=== PATIENT | female | born 1985 ===

== ENCOUNTER 2017-06-26 18:56 | Inpatient (IN) | payer MEDICAID ==
--- NOTE | 2017-06-26 19:12 | OBHP ---
Datetime: 06/26/2017 19:09 IP Adm Impression: Postterm, intrauterine ; No Active Labor IP Admit Plan: Admit to unit; Initiate labor induction protocol Admit Comment, IP Provider: at 41weeks came with c/o irrg ctxs, no vb, lof,+fm. obhx 1 x pmh de med pnv all nkda psh den soch den a/p at 41weeks her for post date induction admit to l_d npo/ivf labs cont zuhair and efm pain devyn anticipate Pelvic Type - PN: Adequate Extremities - PN: Normal Abdomen - PN: Normal Back - PN: Normal Breast - PN: Normal Lungs - PN: Normal Heart - PN: Normal Thyroid - PN: Normal Neurologic - PN: Normal HEENT - PN: Normal General - PN: Normal FHR - Baseline A Provider: 130 Contraction Comments Provider: occ IP Hx Assessment: The History has been Reviewed and is Current Vital Signs Provider: Reviewed; Within Normal Limits IP Chief Complaint: Uterine contractions NICHD Variability Prov Fetus A: Moderate 6-25bpm NICHD Accel Fetus A IP Provider: 15X15 FHR Category Provider Fetus A: Category I Genitourinary Exam: Normal DTRs - PN: Normal
[2017-06-26 19:15] VITALS: BMI 30.4
[2017-06-26] MEDS ORDERED: Nalbuphine 20 mg/ml Inj (1 ml) IVP PRN (19:15)
[2017-06-26] MEDS ORDERED: Lactated Ringer's 1,000 ML IV SCH (19:15)
--- NOTE | 2017-06-26 19:15 | OBADHP ---
Datetime: 06/26/2017 19:09 Admit Comment, IP Provider: at 41weeks came with c/o irrg ctxs, no vb, lof,+fm. obhx 1 x pmh de med pnv all nkda psh den soch den a/p at 41weeks her for post date induction admit to l_d npo/ivf labs cont zuhair and efm pain devyn anticipate Pelvic Type - PN: Adequate Extremities - PN: Normal Abdomen - PN: Normal Back - PN: Normal Breast - PN: Normal Lungs - PN: Normal Heart - PN: Normal Thyroid - PN: Normal Neurologic - PN: Normal HEENT - PN: Normal General - PN: Normal FHR - Baseline A Provider: 130 Contraction Comments Provider: occ Comments, ACOG Physical Exam: gravid,non tender ext no edema,no calf IP Hx Assessment: The History has been Reviewed and is Current Vital Signs Provider: Reviewed; Within Normal Limits IP Chief Complaint: Uterine contractions NICHD Variability Prov Fetus A: Moderate 6-25bpm NICHD Accel Fetus A IP Provider: 15X15 FHR Category Provider Fetus A: Category I Genitourinary Exam: Normal DTRs - PN: Normal IP Adm Impression: Postterm, intrauterine ; No Active Labor IP Admit Plan: Admit to unit; Initiate labor induction protocol
--- NOTE | 2017-06-26 19:25 | OBPN ---
Datetime: 06/26/2017 19:23 IP Procedures: Sterile Vag Exam IP Progress Plan: Cervical Ripening Contraction Comments Provider: occ FHR - Baseline A Provider: 120 IP Progress Note Comment: pt was examined at bed side cervidil placed r/a/b discussed Vital Signs Provider: Reviewed; Within Normal Limits NICHD Accel Fetus A IP Provider: 15X15 FHR Category Provider Fetus A: Category I NICHD Variability Prov Fetus A: Moderate 6-25bpm Dilatation, Provider: 0 Effacement, Provider: 30 Station, Provider: -3 Datetime: 06/26/2017 19:09 IP Informed Consent Obtain: Vaginal Delivery
[2017-06-26 19:34] LABS: BASO % 0.3 % (0.0-2.0); EOS % 0.1 % (0.0-4.0); HEMATOCRIT 36.5 % (34.0-47.0); MEAN CELL VOLUME 93.6 fL (81.0-99.0); MEAN CORPUSCULAR HEMOGLOBIN 31.9 pg (27.0-31.0); MEAN PLATELET VOLUME 8.3 fL (7.2-11.7); MONO # 0.3 K/uL (0.0-0.8); MONO % 5.1 % (0.0-10.0); NRBC % 0.1 % (0.0-2.0); RED CELL DISTRIBUTION WIDTH 13.2 % (11.5-14.5); WHITE BLOOD COUNT 6.7 K/uL (4.8-10.8)
[2017-06-26 19:42] LABS: CHLORIDE 100 mmol/L (98-107)
[2017-06-26 19:43] LABS: POTASSIUM 3.9 mmol/L (3.6-5.2); SODIUM 136 mmol/L (132-148)
[2017-06-26 19:45] LABS: ALB/GLOB RATIO 1.1 (1.0-2.1); AST/SGOT 31 U/L (14-36); BILIRUBIN,TOTAL 0.5 mg/dL (0.2-1.3); CARBON DIOXIDE 21 mmol/L (22-30); GFR AFRICAN-AMERICAN > 60; TOTAL PROTEIN 6.7 g/dL (6.3-8.3)
[2017-06-26 19:46] LABS: ALKALINE PHOSPHATASE 94 U/L (38-126); ALT/SGPT 34 U/L (9-52); BLOOD UREA NITROGEN 8 mg/dL (7-17); CALCIUM 8.8 mg/dl (8.6-10.4); GLUCOSE,RANDOM 83 mg/dL (65-105)
[2017-06-26 19:58] LABS: RBC URINE 4 /hpf (0-3); TRANSITIONAL EPITHIAL < 1 /hpf (0-3); URINE BACTERIA OCC (<OCC); URINE BILIRUBIN NEGATIVE (NEGATIVE); URINE BLOOD NEGATIVE (NEGATIVE); URINE COLOR Yellow (YELLOW); URINE GLUCOSE (UA) NORMAL (Normal); URINE KETONE NEGATIVE (NEGATIVE); URINE LEUKOCYTE ESTERASE 2+ Leu/uL (Negative); URINE PROTEIN NEGATIVE (NEGATIVE); URINE UROBILINOGEN NORMAL mg/dL (0.2-1.0); WBC URINE 15 /hpf (0-5)
[2017-06-27] MEDS ORDERED: Nalbuphine 20 mg/ml Inj (1 ml) ONE (01:47)
--- NOTE | 2017-06-27 06:16 | OBPN ---
Datetime: 06/27/2017 06:12 IP Progress Plan Other: cervidil removed IP Procedures: Sterile Vag Exam Contraction Comments Provider: irrg FHR - Baseline A Provider: 120 IP Progress Note Comment: pt was examined at bed side fhr 130 mod with occ variables cervidil removed anticipate Vital Signs Provider: Within Normal Limits NICHD Variability Prov Fetus A: Moderate 6-25bpm
--- NOTE | 2017-06-27 07:45 | OBPN ---
Datetime: 06/27/2017 07:38 IP Progress Impression: Normal progression of labor IP Procedures: Sterile Vag Exam IP Progress Plan: Continue present management; Augmentation; Anesthesia consult Membranes, Provider: Intact Contraction Comments Provider: 2-6 FHR - Baseline A Provider: 120 Gestation - Est Wks by US: 41.0 Presentation-Admit: Vertex IP Progress Note Comment: Patient received in right lateral position in LDR #3: present. Halima naidu is from [place], speaks Azeri; understands Lithuanian (+) pain of contractions, pain scale 7/10; receptive to epidural. (+) AFM; denies LOF V.E.: as above. Assessment: 31 yo P1, 41 weeks, IOL; S/P cervidil x 1 with good cervical response; entering active phase of labor. Category 1 tracing. Clinically stable. Plan: 1) Epidural 2) Probable pitocin augmentation 3) Anticipate vaginal delivery NICHD Accel Fetus A IP Provider: 15X15 FHR Category Provider Fetus A: Category I NICHD Variability Prov Fetus A: Moderate 6-25bpm Dilatation, Provider: 4 Effacement, Provider: 50 Station, Provider: -3 NICHD Decel Fetus A IP Provider: None
[2017-06-27] MEDS ORDERED: Oxytocin 30 UNIT 30 UNITS/500 ML BAG IV PRN (08:48)
[2017-06-27] MEDS ORDERED: Bupivacaine 0.125%/FentaNYL 200 ML EPI ONE (09:19)
--- NOTE | 2017-06-27 11:58 | OBPN ---
Datetime: 06/27/2017 11:48 IP Progress Impression: Normal progression of labor IP Progress Plan: Continue present management; Anticipate Vaginal Delivery Membranes, Provider: Ruptured Contraction Comments Provider: 2-3 FHR - Baseline A Provider: 140 Gestation - Est Wks by US: 41.0 IP Progress Note Comment: Patient is S/P epidural; with SROM at 1030 hours. Now c/o increasing vagin al pressure V.E.: as above. Assessment: 31y.o. P1, 41 weeks, in active labor. Category 1 tracing. Clinically stable. Plan: 1) Epidural top off 2) continue present management 3) Anticipate vaginal delivery NICHD Accel Fetus A IP Provider: 15X15 FHR Category Provider Fetus A: Category I NICHD Variability Prov Fetus A: Moderate 6-25bpm Dilatation, Provider: 6 Effacement, Provider: 80 Station, Provider: -3 NICHD Decel Fetus A IP Provider: None
[2017-06-27] MEDS ORDERED: Oxytocin 30 UNIT 30 UNITS/500 ML BAG IV ONE (12:00)
[2017-06-27] MEDS ORDERED: Lidocaine 2% Inj (20ml) ONE (13:29)
[2017-06-27] MEDS ORDERED: Benzocaine/Menthol 20%-0.5% Topical Spray (60 ml) TOP PRN (17:22)
[2017-06-27] MEDS ORDERED: Acetaminophen-Codeine 300/30 mg Tab PO PRN (17:22)
[2017-06-27] MEDS ORDERED: Oxycodone/Acetaminophen 5/325 mg Tab PO PRN (17:22)
--- NOTE | 2017-06-27 17:27 | OBDS ---
DELIVERY PERSONNEL Delivery Doctor: Yeny Hansen MD Scrub Nurse: Veronica Martinez OBT On Site Manager: Jazzmine Denise RN Anesthesiologist: MD Dyllan Resident: Julio Love MD MATERNAL INFORMATION Delivery Anesthesia: Epidural Medications in Delivery: Pitocin Estimated Blood Loss (ml): 250 Placenta Cultured: No Maternal Complications: None RN Comments: to a live baby boy to mother's abdomen, skin to skin, attended to by Katt Huitron. Apga r 9:9. Breast feeding initiated. Provider Comments: Uncomplicated vaginal delivery of live male SOWMYA position, over intact geoffrey neum, weight 8lb 2oz, Apgars 9/9 LABOR SUMMARY EDC: 06/20/2017 00:00 No. Babies in Womb: 1 Attempted: No Labor Anesthesia: Epidural LABOR INFORMATION Onset of Labor: 06/27/2017 07:00 Complete Dilatation: 06/27/2017 16:23 Cervical Ripening Agents: Cervidil Group B Beta Strep: Negative (Annotations: 05/24/2017) MEMBRANES Membranes Rupture Method: Spontaneous Rupture of Membranes: 06/27/2017 10:29 Length of Rupture (hrs): 6.63 Amniotic Fluid Color: Clear Amniotic Fluid Amount: Moderate Amniotic Fluid Odor: Normal STAGES OF LABOR Stage 1 hrs: 9 Stage 1 min: 23 Stage 2 hrs: 0 Stage 2 min: 44 Stage 3 hrs: 0 Stage 3 min: 9 Total Time in Labor hrs: 10 Total Time in Labor min: 16 VAGINAL DELIVERY Episiotomy: None Laceration Extension: N/A Laceration Type: None Laceration Repair: Not Applicable Initial Vag Sponge Count: 10 Final Vag Sponge Count: 10 Initial Vag Sharps Count: 0 Final Vag Sharps Count: 0 Sponge Count Correct: Yes Sharps Count Correct: Yes Count Comment: Correct BABY A INFORMATION Infant Delivery Date/Time: 06/27/2017 17:07 Method of Delivery: Vaginal Born in Route : No : N/A Forceps: N/A Vacuum Extraction: N/A Shoulder Dystocia : No SHOULDER DYSTOCIA BABY A Infant Delivery Date/Time: 06/27/2017 17:07 PRESENTATION/POSITION BABY A Presentation: Cephalic Cephalic Presentation: Vertex Vertex Position: Left Occipital Anterior Breech Presentation: N/A PLACENTA INFORMATION BABY A Placenta Delivery Time : 06/27/2017 17:16 Placenta Method of Delivery: Spontaneous Placenta Status: Delivered SCORES BABY A Heart Rate 1 min: >100 bpm Resp Effort 1 min: Good Cry Reflex Irritability 1 min: Cough or Sneeze or Pulls Away Muscle Tone 1 min: Active Motion Color 1 min: Body Ulysses, Extremities Blue SCORE 1 MIN: 9 Heart Rate 5 min: >100 bpm Resp Effort 5 min: Good Cry Reflex Irritability 5 min: Cough or Sneeze or Pulls Away Muscle Tone 5 min: Active Motion Color 5 min: Body Ulysses, Extremities Blue SCORE 5 MIN: 9 INFANT INFORMATION BABY A Gestational Age at Delivery: 41.0 Gestational Status: Term Infant Outcome : Liveborn Infant Condition : Stable Infant Sex: Male IDENTIFICATION/MEDS BABY A ID Band Number: [id number] ID Band Location: Left Leg; Left Arm Sensor Applied: Yes Sensor Number: [id number] Sensor Location : Cord Clamp Vitamin K Given : Not Given Erythromycin Given: Not Given WEIGHT/LENGTH BABY A Birthweight (gms): 3680 Weight (lb): 8 Infant Weight (oz): 2 Infant Length Inches: 20.00 Infant Length cms: 50.8 CORD INFORMATION BABY A No. Cord Vessels: 3 Nuchal Cord : N/A Nuchal Cord Other: n/a True Knot: 0 Cord Blood Taken: Yes Infant Suction: Mouth; Nose ASSESSMENT BABY A Infant Complications: None Physical Findings at Delivery: Within Normal Limits Infant Respirations: Appears Normal Auto Body Technician/ALS Called : No Care By: Katt Huitron Transferred To: Remains with Mother
[2017-06-28 08:01] LABS: MEAN CELL VOLUME 94.1 fL (81.0-99.0); MEAN CORPUSCULAR HEMOGLOBIN 32.3 pg (27.0-31.0); MEAN CORPUSCULAR HGB CONC 34.3 g/dL (33.0-37.0); MEAN PLATELET VOLUME 8.1 fL (7.2-11.7); RED CELL DISTRIBUTION WIDTH 13.6 % (11.5-14.5); WHITE BLOOD COUNT 9.5 K/uL (4.8-10.8)
[2017-06-28] MEDS: Multiple Vitamins Tab PO SCH (10:00)
--- NOTE | 2017-06-28 16:04 | OBPPN ---
Datetime: 06/28/2017 07:43 PP Pain Prov: Within normal limits PP Nausea Prov: Denies PP Flatus Prov: Yes PP BM Prov: No PP Impression Prov: Normal progression PP Plan Prov: Continue present management PP Progress Note Prov: Patient seen and examined at bedside. Patient is doing well, pain is controll ed. Patient is ambulating and tolerating diet. Lochia is moderate. Patient is passing flatus, no BM. Urinating without difficulty. +. Denies headache, dizziness, CP, SOB, abd pain, urinary symptoms. VS: 110/67 88 98.6 Gen: AAOx3 CV: RRR Lungs: CTA B/L Abd: soft, non-tender, fundus firm at umbilicus Ext: no clubbing, cyanosis, edema; no calf tenderness Labs: 6.7>12.4/36.5<190 F/U am cbc Rh positive Rubella immune A/P: 31 yo s/p PPD#1 1. stable, afebrile 2. pain control - motrin and tylenol prn 3. f/u am cbc 4. encourage ambulation and hydration 5. continue routine post care 6. male - desires circ 7. anticipate d/c home tomorrow - pelvic rest x 6 weeks, tylenol/motrin pain, f/u with clinic in 6 weeks 8. plan d/w attending Manuela Love PGY-1 Pt was seen and examined with resident and I agree with above. Vital Signs Provider PP: Reviewed
[2017-06-28 16:18] VITALS: RESP 20
--- NOTE | 2017-06-29 08:55 | OBPPN ---
Datetime: 06/29/2017 08:48 PP Pain Prov: Within normal limits PP Nausea Prov: Denies PP Flatus Prov: Yes PP BM Prov: Yes PP Breasts Prov: Normal PP Heart Prov: Normal PP Lungs Prov: Normal PP Abdomen/Uterus Prov: Normal PP Lochia Prov: Normal PP Vulva/Perineum Prov: Not Done PP CVA Tenderness Prov: Normal PP Extremities Prov: Normal PP C/S Incision Prov: Not Applicable PP Progress Prov: Normal PP Comments Phys Exam Prov: Breasts: symmetri, no cracked nipples Abdomen: soft, non distended. Fundus firm, mobile, non tender, 1 FB below umbilicus. Mild lochia r ubra All other systems reviewed and are negative PP Impression Prov: Normal progression PP Plan Prov: Discharge PP Progress Note Prov: Patient received in bed, room 455. exclusively; desires circumc isoin. Ambulating and voiding without difficulty. Denies nausea, vomiting. P.E.: as above. WD in NAD. Awake, alert, oriented to time, person and place. Pleasant and cooperat darion. - PPD#1 H/H 11.3/33.0. Rh(+) Assessment: PPD#2, 31 y.o. P2, S/P . Afebrile., vital signs stable. Interested in IUD for contr aception. Clinically stable. Plan: 1) Discharge home 2) See full discharge instrucitons Vital Signs Provider PP: Reviewed; Within Normal Limits
--- NOTE | 2017-06-29 08:56 | OBDCSUM ---
Datetime: 06/29/2017 08:25 Discharged to, Provider: Home Follow up at, Provider: Clinic Disch Instr Activity: Normal activity Disch Instr Diet: Regular Discharge Diagnosis, Provider: Term Delivered Discharge Time: 06/29/2017 12:00 Follow up in weeks, Provider: 6 weeks Contraception discussed, Prov: Yes Disch Activity Restrictions: No exercising; No lifting; No driving; No sexual activity; Nothing in v agina - [place], tampons, douche Discharge Diagnosis Prov Other: Contraception counseling Contraception after Delivery: IUD
[2017-06-29 09:50] VITALS: BP 117/72; PULSE 70; TEMP 98.1; O2SAT 100
[2017-06-29] MEDS: Multiple Vitamins Tab PO SCH (10:20)
== END 2017-06-29 13:20 | disposition home or self-care (01) | DRG 373 ==
LOC: C.EROB 18:56 → C.4D 19:07 → C.4M 06-27 19:15
PROVIDERS: ADMIT Obstetrics & Gynecology; ATTEND Obstetrics & Gynecology
PROC: 10E0XZZ Delivery of Products of Conception, External Approach (ICD-10-PCS; principal; 2017-06-27)
DX: O48.0 Post-term pregnancy (principal); Z37.0 Single live birth; Z3A.41 41 weeks gestation of pregnancy